=== PATIENT | female | born 1990 | race American Indian/Alaskan Native ===

== ENCOUNTER 2016-10-30 07:17 | Observation (INO) | payer MEDICAID ==
[2016-10-30] MEDS ORDERED: Misoprostol 25 MCG (1/4 of 100 MCG) Tab VAG ONE (07:30)
[2016-10-30] MEDS ORDERED: Sodium Chloride 0.9% 10 ML Syringe FLUSH PRN (08:39)
--- NOTE | 2016-10-30 08:39 | PCM.LDHP ---
[id number] Status Order with Admit Dx/Problem 10/30/16 07:29 Admission Status [Patient Status] [ADT] Routine Admission Diagnosis/Problem Admission Diagnosis/Problem -related examination Source of Information: Patient History Limitations: Reports: No Limitations - History of Present Illness Introduction:: No contractions. She is being admitted for induction at early term due to non compliance,gestational diabetes,poorly monitored. - Related Data Allergies/Adverse Reactions: Allergies Allergy/AdvReac Type Severity Reaction Status Date / Time No Known Allergies Allergy Verified 10/30/16 10:06 Home Medications: Home Meds Insulin Aspart [Novolog] 5 unit SQ DAILY 10/30/16 [History] PNV95/Ferrous Fumarate/FA [ Tablet] 1 each PO DAILY 10/30/16 [History] Past Medical History Endocrine/Metabolic History: Reports: Diabetes, Gestational, Obesity/BMI 30+ - Infectious Disease History Infectious Disease History: Reports: Other (See Below) (Trich) - Past Surgical History Female Surgical History: Reports: Other (See Below) (Ovarian surgery) Social & Family History - Family History Family Medical History: Noncontributory - Tobacco Use Smoking Status *Q: Never Smoker H&P Review of Systems - Review of Systems: Review Of Systems: ROS reveals no pertinent complaints other than HPI. L&D Exam - Exam Exam: See Below - Vital Signs Vital Signs: Last Vital Signs Temp Pulse 105 H 10/30/16 07:30 Resp 17 10/30/16 07:30 BP 108/59 L 10/30/16 07:30 Pulse Ox 99 10/30/16 07:30 - Gee Score Gee Score Cervix Position: Anterior Gee Score Consistency: Medium Gee Score Effacement: 31-50% Gee Score Dilation: 1-2 cm - Exam General: Alert, Oriented HEENT: PERRLA, Conjunctiva Clear, EACs Clear, EOMI, Hearing Intact, Mucosa Moist & [place], Nares Patent, Normal Nasal Septum, Posterior Pharynx Clear, TMs Clear Neck: Supple, Trachea Midline Lungs: Clear to Auscultation, Normal Respiratory Effort Cardiovascular: Regular Rate, Regular Rhythm GI/Abdominal Exam: Normal Bowel Sounds, Soft, Non-Tender, No Organomegaly, No Distention, No Abnormal Bruit, No Mass, Pelvis Stable Rectal Exam: Normal Exam, Normal Rectal Tone Genitourinary: Normal external exam, Normal bimanual exam, Normal speculum exam Back Exam: Normal Inspection, Full Range of Motion Extremities: Normal Inspection, Normal Range of Motion, Non-Tender, No Pedal Edema, Normal Capillary Refill Skin: Warm, Dry, Intact Neurological: Cranial Nerves Intact, Reflexes Equal Bilateral Psychiatric: Alert, Normal Affect, Normal Mood - Patient Data Result Diagrams: 10/30/16 09:05 10/30/16 09:05 - Problem List (1) Gestational diabetes SNOMED Code(s): 61885572 ICD Code: O24.419 - GESTATIONAL DIABETES MELLITUS IN , UNSP CONTROL Status: Acute Current Visit: Yes Qualifiers: Gestational diabetes mellitus control: insulin-controlled Trimester: third trimester Qualified Code(s): O24.414 - Gestational diabetes mellitus in , insulin controlled (2) Elective induction of labor planned SNOMED Code(s): 114571420 ICD Code: [id number] - Status: Acute Current Visit: Yes (3) Obesities, morbid SNOMED Code(s): 265545214, 09945965057226 ICD Code: E66.01 - MORBID (SEVERE) OBESITY DUE TO EXCESS CALORIES Status: Acute Current Visit: Yes Problem List Initiated/Reviewed/Updated: Yes Orders Last 24hrs: Active Orders 24 hr Category Date Time Status Admission Status [Patient Status] [ADT] Routine ADT 10/30/16 07:29 Active Assessment/Plan Comment:: Try Cytotec,and then Pitocin. Normal Saline Insulin
[2016-10-30] MEDS: Insulin Aspart 100 Units/ML 3 ML Pen SUBCUT SCH ×8 (09:50→22:15)
[2016-10-30] MEDS: Oxytocin/Normal Saline 10 UNIT/1,000 ML BAG IV SCH (11:32)
[2016-10-30] MEDS: Lactated Ringers 1,000 ML IV SCH ×2 (14:52→19:02)
[2016-10-31 00:05] VITALS: BP 122/57
[2016-10-31] MEDS: Insulin Aspart 100 Units/ML 3 ML Pen SUBCUT SCH ×5 (02:02→08:25)
[2016-10-31] MEDS: Lactated Ringers 1,000 ML IV SCH (03:11)
[2016-10-31] MEDS: Oxytocin/Normal Saline 10 UNIT/1,000 ML BAG IV SCH (04:32)
--- NOTE | 2016-10-31 07:25 | PN ---
DATE SEEN: 10/31/2016 CHIEF COMPLAINT: Induction of labor. HISTORY OF PRESENT ILLNESS: A 25-year-old female with gestational diabetes, obesity, who was brought in yesterday for induction of labor; noncompliance with insulin, diet, and appointments. Overnight, we tried Pitocin, but there has been no change in the cervix. She expresses interest to go back home and try next week. REVIEW OF SYSTEMS: No fever or chills. No breakage of fluid. MEDICATIONS: Reviewed. ALLERGIES: Reviewed. PHYSICAL EXAMINATION: GENERAL: Pleasant. VIAL SIGNS: Blood pressure is normal, pulse is 79, temperature 98.1. ABDOMEN: Soft. Fundal height is about 37 cm. CERVIX: Sterile cervix exam revealed a closed fingertip 50% effacement with a Gee score of less than 3. IMPRESSION: My final impression is: 1. A failed induction. 2. Gestational diabetes. 3. Early term . 4. Obesity. PLAN: After review of options, the patient elected to try this next week. I will send her home to continue the NPH insulin 15 units in the morning and 5 units of NovoLog with every meal to keep blood sugars 4 times a day. See me on Saturday in the clinic and induction will be set for November 08 next week. To come back to the emergency room with any worsening symptoms. An ultrasound done yesterday showed a presentation of cephalic with a missed weight of 7 pounds 9 ounces. We will plan to have on Saturday for an NST in the clinic or here and then induction for . /[id number] ABELARDO/BAYLEE
--- NOTE | 2016-11-06 11:01 | US ---
INDICATION: Labor induction. Gestational age, weight, position. OB ULTRASOUND THIRD TRIMESTER: Multiple ultrasonic images were obtained 2016 and revealed a single longitudinally-lying, cephalic-presenting fetus, with the spine anteriorly located. A normal amount of amniotic fluid is noted, but is relatively minimal. Regular heart rate of 140 BPM was noted. Placenta is posterior fundal without evidence of previa. Gestational age measurements were fairly closely grouped: BPD 37 weeks 2 days. HC 38 weeks 1 day. AC 39 weeks. FL 37 weeks 1 day, and averaged 38 weeks, compatible with an ROSAURA by ultrasound of 11/13/2016. This is compatible with the LMP given clinically on 09/11/2016 examination. Estimated weight was 3430 grams (7 pounds 9 ounces). IMPRESSION: Findings are compatible with a longitudinally-lying, cephalic- presenting fetus weighing approximately 3430 grams, compatible with an ROSAURA by ultrasound of 11/13/2016. Findings should be correlated clinically. MTDD
== END 2016-10-31 09:45 | disposition home or self-care (01) ==
LOC: EDSTATUS 07:17 → FB.OB 07:19
PROVIDERS: ADMIT Family Medicine; ATTEND Family Medicine
DX: O47.9 False labor, unspecified (principal); O24.414 Gestational diabetes mellitus in pregnancy, insulin controlled; E66.01 Morbid (severe) obesity due to excess calories; Z79.899 Other long term (current) drug therapy; Z68.30 Body mass index [BMI] 30.0-30.9, adult
CPT/HCPCS: 36415; 76805; 80053; 82962; 85025; 96365; 96366; A9270; G0378; J2590; J7050; J7120; 99211

== ENCOUNTER 2016-11-09 07:38 | Inpatient (IN) | payer MEDICAID ==
[2016-11-09] MEDS ORDERED: Sodium Chloride 0.9% 10 ML Syringe FLUSH PRN (07:52)
[2016-11-09] MEDS: Oxytocin/Normal Saline 10 UNIT/1,000 ML BAG IV SCH ×2 (08:51→21:51)
[2016-11-09] MEDS: Lactated Ringers 1,000 ML IV SCH ×2 (08:57→16:44)
--- NOTE | 2016-11-09 17:43 | PCM.LDHP ---
L&D History of Present Illness - General Date of Service: 11/09/16 Admit Problem/Dx: Patient Status Order with Admit Dx/Problem 11/09/16 07:47 Patient Status [ADT] Routine Admission Diagnosis/Problem Admission Diagnosis/Problem Source of Information: Patient History Limitations: Reports: No Limitations - History of Present Illness Introduction:: 25 yo GI P0 with Gestational Diabetes,presents for induction of labor.No conplaints. 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: , Other (See Below) Other OB/BYN History: current gestational diabetic uses insulin Endocrine/Metabolic History: Reports: Diabetes, Gestational, Obesity/BMI 30+ - Infectious Disease History Infectious Disease History: Reports: Other (See Below) (Trich) - Past Surgical History HEENT Surgical History: Reports: None Female Surgical History: Reports: Other (See Below) Social & Family History - Family History Family Medical History: Noncontributory - Tobacco Use Smoking Status *Q: Never Smoker Second Hand Smoke Exposure: No - Caffeine Use Caffeine Use: Reports: Soda - Recreational Drug Use Recreational Drug Use: No H&P Review of Systems - Review of Systems: Review Of Systems: ROS reveals no pertinent complaints other than HPI. L&D Exam - Exam Exam: See Below - Vital Signs Vital Signs: Last Vital Signs Temp 98 F 11/09/16 13:00 Pulse 84 11/09/16 13:00 Resp 22 H 11/09/16 13:00 BP 107/49 L 11/09/16 13:00 Pulse Ox Weight: 117.435 kg - OB Specific Contraction Duration (sec): 40-60 Contraction Frequency (min): 2-5 Contraction Intensity: Mild to Moderate - Gee Score Gee Score Cervix Position: Midposition Gee Score Consistency: Soft Gee Score Dilation: Closed Gee Score 's Station: -2 - Exam General: Alert, Oriented HEENT: PERRLA, Conjunctiva Clear, EACs Clear, EOMI, Hearing Intact, Mucosa Moist & [place], Nares Patent, Normal Nasal Septum, Posterior Pharynx Clear, TMs Clear Neck: Supple, Trachea Midline Lungs: Clear to Auscultation, Normal Respiratory Effort Cardiovascular: Regular Rate, Regular Rhythm GI/Abdominal Exam: Normal Bowel Sounds, Soft, Non-Tender, No Organomegaly, No Distention, No Abnormal Bruit, No Mass, Pelvis Stable Rectal Exam: Normal Exam, Normal Rectal Tone Genitourinary: Normal external exam, Normal bimanual exam, Normal speculum exam Back Exam: Normal Inspection, Full Range of Motion Extremities: Normal Inspection, Normal Range of Motion, Non-Tender, No Pedal Edema, Normal Capillary Refill Skin: Warm, Dry, Intact Neurological: Cranial Nerves Intact, Reflexes Equal Bilateral Psychiatric: Alert, Normal Affect, Normal Mood - Patient Data Lab Results Last 24 hrs: Laboratory Results - last 24 hr 11/09/16 11/09/16 11/09/16 Range/Units 08:27 10:56 13:10 POC Glucose 127 H 89 77 L (80-116) mg/dL 11/09/16 Range/Units 16:03 POC Glucose 80 (80-116) mg/dL - Problem List (1) Elective induction of labor planned SNOMED Code(s): 462386544 ICD Code: [id number] - Status: Acute Current Visit: No (2) Gestational diabetes SNOMED Code(s): 20785614 ICD Code: O24.419 - GESTATIONAL DIABETES MELLITUS IN , UNSP CONTROL Status: Acute Current Visit: No Qualifiers: Gestational diabetes mellitus control: insulin-controlled Trimester: third trimester Qualified Code(s): O24.414 - Gestational diabetes mellitus in , insulin controlled (3) Obesities, morbid SNOMED Code(s): 340052353, [id number] ICD Code: E66.01 - MORBID (SEVERE) OBESITY DUE TO EXCESS CALORIES Status: Acute Current Visit: No Problem List Initiated/Reviewed/Updated: Yes Orders Last 24hrs: Active Orders 24 hr Category Date Time Status Patient Status [ADT] Routine ADT 11/09/16 07:47 Active Communication Order [RC] ASDIRECTED Care 11/09/16 07:52 Active Communication Order [RC] ASDIRECTED Care 11/09/16 07:52 Active Communication Order [RC] ASDIRECTED Care 11/09/16 07:52 Active Communication Order [RC] ASDIRECTED Care 11/09/16 07:52 Active Notify Provider [RC] PRN Care 11/09/16 07:52 Active Notify Provider [RC] STAT Care 11/09/16 07:52 Active Vaginal Exam [RC] PRN Care 11/09/16 07:52 Active Vital Signs [RC] PER UNIT ROUTINE Care 11/09/16 07:52 Active Lactated Ringers [Ringers, Lactated] 1,000 ml Med 11/09/16 08:00 Active IV ASDIRECTED Oxytocin/Normal Saline [Pitocin in NS 10 UNITS/1,000 ML Med 11/09/16 08:00 Active ] 10 unit in 1,000 ml IV TITRATE Sodium Chloride 0.9% [Saline Flush] Med 11/09/16 07:52 Active 10 ml FLUSH ASDIRECTED PRN Peripheral IV Insertion Adult [OM.PC] Urgent Oth 11/09/16 07:52 Ordered Resuscitation Status Routine Resus Stat 11/09/16 07:47 Ordered Medication Orders Lactated Ringer's (Ringers, Lactated) 1,000 mls @ 125 mls/hr IV ASDIRECTED TAQUERIA Last Admin: 11/09/16 16:44 Dose: 125 mls/hr Infusion: 11/09/16 16:44 Dose: 125 mls/hr Admin: 11/09/16 08:57 Dose: 125 mls/hr Oxytocin/Sodium Chloride (Pitocin In Ns 10 Units/1,000 Ml) 10 unit in 1,000 mls @ 12 mls/hr IV TITRATE TAQUERIA; 2 MUNITS/MIN PRN Reason: Protocol Last Titration: 11/09/16 15:40 Dose: 16 munits/min, 96 mls/hr Titration: 11/09/16 15:02 Dose: 14 munits/min, 84 mls/hr Titration: 11/09/16 14:05 Dose: 12 munits/min, 72 mls/hr Titration: 11/09/16 11:41 Dose: 10 munits/min, 60 mls/hr Titration: 11/09/16 10:50 Dose: 8 munits/min, 48 mls/hr Titration: 11/09/16 10:17 Dose: 6 munits/min, 36 mls/hr Titration: 11/09/16 08:51 Dose: 2 munits/min, 12 mls/hr Admin: 11/09/16 08:51 Dose: 2 munits/min, 12 mls/hr Sodium Chloride (Saline Flush) 10 ml FLUSH ASDIRECTED PRN PRN Reason: Keep Vein Open Last Admin: 11/09/16 08:57 Dose: 10 ml Assessment/Plan Comment:: Induce with Pit.Monitor Sugars.
[2016-11-10] MEDS: Lactated Ringers 1,000 ML IV SCH ×3 (00:22→19:34)
[2016-11-10] MEDS: Oxytocin/Normal Saline 10 UNIT/1,000 ML BAG IV SCH (06:32)
[2016-11-10] MEDS ORDERED: Citric Acid/Sodium Citrate Solution 30 ML Cup PO ONE ×2 (07:00→19:12)
[2016-11-10] MEDS ORDERED: Scopolamine 1.5 MG Transdermal Patch TRDERM ONE (07:00)
[2016-11-10] MEDS: Nalbuphine 10 MG/1 ML Vial IVPUSH PRN ×2 (12:04→19:12)
[2016-11-10] MEDS ORDERED: Scopolamine 1.5 MG Transdermal Patch TOP ONE (19:13)
--- NOTE | 2016-11-10 19:52 | PCM.PNLD ---
Labor Progress Note - VS & Meds Vital Signs: Last Vital Signs Temp 97.4 F 11/10/16 12:08 Pulse 68 11/10/16 08:07 Resp 20 11/10/16 12:08 BP 131/82 11/10/16 12:08 Pulse Ox 96 11/10/16 12:08 Active Medications: Current Medications Lactated Ringer's (Ringers, Lactated) 1,000 mls @ 125 mls/hr IV ASDIRECTED TAQUERIA Last Admin: 11/10/16 19:34 Dose: 100 mls/hr Oxytocin/Sodium Chloride (Pitocin In Ns 10 Units/1,000 Ml) 10 unit in 1,000 mls @ 12 mls/hr IV TITRATE TAQUERIA; 2 MUNITS/MIN PRN Reason: Protocol Last Titration: 11/10/16 17:17 Dose: 10 munits/min, 60 mls/hr Nalbuphine HCl (Nubain) 10 mg IVPUSH Q3H PRN PRN Reason: contraction pain Last Admin: 11/10/16 19:12 Dose: 10 mg Sodium Chloride (Saline Flush) 10 ml FLUSH ASDIRECTED PRN PRN Reason: Keep Vein Open Last Admin: 11/09/16 08:57 Dose: 10 ml Discontinued Medications Citric Acid/Sodium Citrate (Bicitra Solution) 30 ml PO ONETIME ONE Stop: 11/10/16 07:01 Last Admin: 11/10/16 19:27 Dose: Not Given Citric Acid/Sodium Citrate (Bicitra Solution) 30 ml PO ONETIME ONE Stop: 11/10/16 19:13 Scopolamine (Transderm-Scop) 1.5 mg TRDERM ONETIME ONE Stop: 11/10/16 07:01 Last Admin: 11/10/16 19:27 Dose: Not Given Scopolamine (Transderm-Scop) 1.5 mg TOP ONETIME ONE Stop: 11/10/16 19:14 - Uterine Contractions Uterine Monitoring Mode: External [place] Contraction Frequency (min): 2-6 Contraction Duration (sec): 20-30 Contraction Intensity: Strong Uterine Resting Tone: Soft - Monitoring Accelerations: Present, 15x15 Decelerations: None Strip Review: Category I - Vaginal Exam Dilation (cm): 4-5 Effacement (Percent): 80 Station: -1 Cervical Position: Midposition Sterile Vaginal Exam Performed By: Glenny Max Vaginal Exam Comment: Dr. David Marc states cervix is very posterior and hard to reach to determine exact dilatation. - Labor Progress (Free Text) Labor Progress: 0800 :This morning,I did AROM. Clear fluid. Continue with Pit. Nubain PRN. Fluids. 1900: I checked her again. St[place]out 4-5,-1 Station. No major progress despite maximizing Pitocin. Impression:Arrested labor. Failure to progress. Marybel: Proceed to C Section. I reviewed benefits,risk and reasonable alternatives with the patient. I covered bleeding,injury,anesthetic risks. She and Ray accepted to proceed.
--- NOTE | 2016-11-10 20:45 | PCM.SN ---
- Free Text/Narrative Note: 25 yo f who is 39 w 5 d gestation. induced yesterday and has had failure to progress. still at 4 cm. sig for gestational diabetes. she is A+, Rh- For c section as determined by Dr Marc. procedure and risks explained to the pt to include bleeding infection, injury to bowel, bladder, ureter and baby. expressed understanding and asks us to proceed.
[2016-11-10] MEDS ORDERED: Oxytocin 10 Units/1 ML SDV IV ONE (21:30)
[2016-11-10] MEDS ORDERED: Lactated Ringers 1,000 ML IV ONE (21:30)
[2016-11-10] MEDS ORDERED: Ondansetron 4 MG/2 ML SDV IVPUSH ONE (21:30)
[2016-11-10] MEDS ORDERED: ceFAZolin 1 GM Vial IV ONE (21:30)
[2016-11-10] MEDS ORDERED: Morphine PF 10 MG/10 ML SDV ONE (21:30)
[2016-11-10] MEDS ORDERED: Ketorolac 30 MG/ML SDV IVPUSH ONE (21:30)
[2016-11-10] MEDS ORDERED: ePHEDrine 50 MG/ML SDV IVPUSH PRN (22:07)
[2016-11-10] MEDS ORDERED: diphenhydrAMINE 50 MG/ML SDV IVPUSH PRN (22:07)
[2016-11-10] MEDS ORDERED: Naloxone 0.4 MG/ML SDV IVPUSH PRN (22:07)
--- NOTE | 2016-11-10 22:14 | PCM.OPNOTE ---
- General Post-Op/Procedure Note Date of Surgery/Procedure: 11/10/16 Operative Procedure(s): c section Findings: term infant apgars 8/9 ISAURA presentation Pre Op Diagnosis: failure to progress Post-Op Diagnosis: Same Anesthesia Technique: Spinal Primary Surgeon: Johnathon Burrell Secondary Surgeon: Stewart Marc Anesthesia Provider: Estella Pinedo Pathology: placenta EBL in mLs: 600 Complications: None Condition: Good Free Text/Narrative:: Intake & Output 11/10/16 11/10/16 11/10/16 06:59 14:59 22:59 Intake Total 0355 1939 Balance 1715 193 see dictation
[2016-11-10] MEDS: Ketorolac 30 MG/ML SDV IVPUSH SCH (23:30)
--- NOTE | 2016-11-11 02:06 | OR ---
DATE OF OPERATION: 11/10/2016 SURGEON: Johnathon Burrell MD PROCEDURE PERFORMED: section. PREOPERATIVE DIAGNOSIS: Failure to progress. POSTOPERATIVE DIAGNOSIS: Failure to progress. ELECTRIC FURNACE OPERATOR: Stewart Marc MD. VIDEO CONTROL ENGINEER: REEMA Pinedo. INDICATIONS FOR PROCEDURE: This is a 25-year-old, white female, who was brought in for induction yesterday. Essentially, she has had a failure to progress in the past 36 hours and it was the opinion of Dr. Marc her attending physician that a section was indicated. She was offered and accepted same. INTRAOPERATIVE FINDINGS: As follows: A term female , ISAURA on presentation with score of 8 and 9, was delivered without difficulty. DESCRIPTION OF OPERATION: After an excellent spinal anesthetic was administered, the patient was prepped and draped in usual sterile manner. After a pinch test with Allis clamps along the planned incision site, revealed excellent anesthesia. An incision was then made with a #10 scalpel blade, approximately two fingerbreadths above the symphysis pubis. It was extended laterally from the midline approximately 5 cm. The underlying subcu fat was divided using a combination of electrocautery and sharp dissection. Bilateral superficial inferior epigastric veins were clamped, divided, and tied with 2-0 Vicryl ties. The anterior abdominal wall fascia was exposed. This was incised and a finger was introduced between the vagina and the underlying muscle layers allowing us to divide the fascia bilaterally with the cautery. The superior fascia was grasped, elevated, and using electrocautery dissection a flap was mobilized superiorly to the approximate level of the umbilicus and inferiorly down below the symphysis pubis. The peritoneum was entered and the uterus was exposed. There was some omentum that we had to retract out of the way as well as the sigmoid colon. A bladder flap was raised by grasping the peritoneum overlying the uterus and developing a plane. Incision was then made into the uterus and the child's head was exposed and index finger was inserted and the incision was widened both medially and laterally. The child's head was delivered followed by the anterior and posterior shoulder. After delivering the head, the airways were suctioned with the bulb suction. After delivering the infant, child was placed head down, more bulb suction was applied, and then the umbilical cord was clamped, divided, and the child was passed off the field. Placenta was then delivered after delivering the uterus of the abdominal wall. After rubbing the inside of the uterus with an ABD and at the start of Pitocin, the uterus was noted to contract nicely. The uterine incision was closed in two layers, one with a locking running 0 Vicryl followed by a running Lembert stitch. After assuring excellent hemostasis, the pouch of Anthony and the two lateral gutters were irrigated and after assuring excellent hemostasis, the uterus was returned to normal anatomic position. The fascial defect was then closed with a running 0 Vicryl and subcu fat was approximated with a running subcu 3-0 Vicryl followed by a running 3-0 subcu Vicryl to close the skin. Steri-Strips and dressing was applied. EBL was 600 mL. The patient was taken to recovery room in good condition having tolerated the procedure well. /[id number] /SERAL
[2016-11-11] MEDS: Ketorolac 30 MG/ML SDV IVPUSH SCH ×3 (06:05→22:40)
[2016-11-11] MEDS: Lactated Ringers 1,000 ML IV SCH ×3 (08:34→23:44)
[2016-11-11] MEDS ORDERED: Lactated Ringers 1,000 ML IV ONE (09:07)
--- NOTE | 2016-11-11 09:12 | PCM.PNPP ---
- General Info Date of Service: 11/11/16 Functional Status: Reports: Pain Controlled, Ambulating, Urinating (decreased u/ o) - Review of Systems General: Reports: No Symptoms Pulmonary: Reports: No Symptoms Cardiovascular: Reports: No Symptoms Gastrointestinal: Reports: No Symptoms - Patient Data Vital Signs - Most Recent: Last Vital Signs Temp 37.0 C 11/11/16 08:00 Pulse 97 11/11/16 08:00 Resp 16 11/11/16 08:00 BP 113/55 L 11/11/16 08:00 Pulse Ox 97 11/11/16 08:00 Weight - Most Recent: 117.435 kg I&O - Last 24 Hours: Intake & Output 11/10/16 11/11/16 11/11/16 22:59 06:59 14:59 Intake Total 729 1000 Output Total 200 Balance 529 1000 Lab Results - Last 24 Hours: Laboratory Results - last 24 hr 11/10/16 11/10/16 11/10/16 Range/Units 16:22 19:55 19:55 WBC 10.7 (4.5-12.0) X10-3/uL RBC 5.08 (3.23-5.20) x10(6)uL Hgb 12.4 (11.5-15.5) g/dL Hct 37.2 (30.0-51.3) % MCV 73.3 L (80-96) fL MCH 24.3 L (27.7-33.6) pg MCHC 33.2 (32.2-35.4) g/dL RDW 15.8 H (11.5-15.5) % Plt Count 256 (125-369) X10(3)uL MPV 8.9 (7.4-10.4) fL Neut % (Auto) 78.8 (46-82) % Lymph % (Auto) 16.0 (13-37) % Mcdonough % (Auto) 4.2 (4-12) % Eos % (Auto) 1 (1.0-5.0) % Baso % (Auto) 0 (0-2) % Neut # (Auto) 8.5 H (1.6-8.3) # Lymph # (Auto) 1.7 (0.6-5.0) # Mcdonough # (Auto) 0.4 (0.0-1.3) # Eos # (Auto) 0.1 (0.0-0.8) # Baso # (Auto) 0.0 (0.0-0.2) # POC Glucose 62 L (80-116) mg/dL Blood Type A POSITIVE Gel Antibody Screen Negative 11/10/16 11/10/16 11/11/16 Range/Units 20:13 22:25 05:55 WBC 11.2 (4.5-12.0) X10-3/uL RBC 4.26 (3.23-5.20) x10(6)uL Hgb 10.3 L (11.5-15.5) g/dL Hct 31.3 (30.0-51.3) % MCV 73.4 L (80-96) fL MCH 24.2 L (27.7-33.6) pg MCHC 32.9 (32.2-35.4) g/dL RDW 15.7 H (11.5-15.5) % Plt Count 222 (125-369) X10(3)uL MPV 9.3 (7.4-10.4) fL Neut % (Auto) 78.1 (46-82) % Lymph % (Auto) 16.0 (13-37) % Mcdonough % (Auto) 5.0 (4-12) % Eos % (Auto) 1 (1.0-5.0) % Baso % (Auto) 0 (0-2) % Neut # (Auto) 8.7 H (1.6-8.3) # Lymph # (Auto) 1.8 (0.6-5.0) # Mcdonough # (Auto) 0.6 (0.0-1.3) # Eos # (Auto) 0.1 (0.0-0.8) # Baso # (Auto) 0.0 (0.0-0.2) # POC Glucose 72 L 64 L (80-116) mg/dL Blood Type Gel Antibody Screen Med Orders - Current: Current Medications Diphenhydramine HCl (Benadryl) 25 mg IVPUSH Q6H PRN PRN Reason: Itching or Nausea Ephedrine Sulfate (Ephedrine Sulfate) 5 mg IVPUSH ASDIRECTED PRN PRN Reason: Other Lactated Ringer's (Ringers, Lactated) 1,000 mls @ 150 mls/hr IV ASDIRECTED TAQUERIA Last Admin: 11/11/16 08:34 Dose: 100 mls/hr Oxytocin/Sodium Chloride (Pitocin In Ns 10 Units/1,000 Ml) 10 unit in 1,000 mls @ 12 mls/hr IV TITRATE TAQUERIA; 2 MUNITS/MIN PRN Reason: Protocol Last Titration: 11/10/16 17:17 Dose: 10 munits/min, 60 mls/hr Lactated Ringer's (Ringers, Lactated) 1,000 mls @ 999 mls/hr IV BOLUS ONE Stop: 11/11/16 10:07 Ketorolac Tromethamine (Toradol) 30 mg IVPUSH Q8H TA[place]ERIA Stop: 11/14/16 22:31 Last Admin: 11/11/16 06:05 Dose: 30 mg Nalbuphine HCl (Nubain) 10 mg IVPUSH Q3H PRN PRN Reason: contraction pain Last Admin: 11/10/16 19:12 Dose: 10 mg Sodium Chloride (Saline Flush) 10 ml FLUSH ASDIRECTED PRN PRN Reason: Keep Vein Open Last Admin: 11/09/16 08:57 Dose: 10 ml Discontinued Medications Citric Acid/Sodium Citrate (Bicitra Solution) 30 ml PO ONETIME ONE Stop: 11/10/16 07:01 Last Admin: 11/10/16 19:27 Dose: Not Given Citric Acid/Sodium Citrate (Bicitra Solution) 30 ml PO ONETIME ONE Stop: 11/10/16 19:13 Last Admin: 11/10/16 20:14 Dose: 30 ml Naloxone HCl (Narcan) 0.1 mg IVPUSH ONETIME PRN PRN Reason: Respiratory Depression Stop: 11/10/16 22:08 Scopolamine (Transderm-Scop) 1.5 mg TRDERM ONETIME ONE Stop: 11/10/16 07:01 Last Admin: 11/10/16 19:27 Dose: Not Given Scopolamine (Transderm-Scop) 1.5 mg TOP ONETIME ONE Stop: 11/10/16 19:14 Last Admin: 11/10/16 20:13 Dose: 1.5 mg - Infant Interaction Support Person: Significant Other - Recovery Exam Fundal Tone: Firm Fundal Level: At Umbilicus Fundal Placement: Midline Lochia Amount: Moderate Lochia Color: Rubra/Red Perineum Description: Intact, Minimal Bruising/Swelling Episiotomy/Laceration: None Bladder Status: Indwelling Catheter in Place Urinary Elimination: Indwelling Catheter - Exam General: Alert, Oriented, Cooperative, No Acute Distress Lungs: Clear to Auscultation, Normal Respiratory Effort Cardiovascular: Regular Rate, Regular Rhythm GI/Abdominal Exam: Normal Bowel Sounds, Soft Skin: Warm, Dry, Intact Wound/Incisions: Dressing Dry and Intact - Problem List & Annotations (1) delivery delivered SNOMED Code(s): 976466679 Code(s): O82 - ENCOUNTER FOR DELIVERY WITHOUT INDICATION Status: Acute Current Visit: Yes - Problem List Review Problem List Initiated/Reviewed/Updated: Yes - My Orders Last 24 Hours: My Active Orders 11/10/16 22:07 Ambulate [RC] PER UNIT ROUTINE Notify Provider Vital Signs [RC] ASDIRECTED Urinary Catheter Assessment [RC] QSHIFT Wound Care [RC] 08,16,00 diphenhydrAMINE [Benadryl] 25 mg IVPUSH Q6H PRN ePHEDrine [ePHEDrine Sulfate] 5 mg IVPUSH ASDIRECTED PRN Assess Lochia [WOMSER] Per Unit Routine Breast Pump [WOMSER] Per Unit Routine 11/10/16 22:08 Communication Order [RC] Per Unit Routine Communication Order [RC] Per Unit Routine Communication Order [RC] Per Unit Routine Abdominal Binder [OM.PC] Per Unit Routine Assess Uterine Involution [WOMSER] Per Unit Routine 11/10/16 22:09 RT Incentive Spirometry [RC] Q2HWA 11/10/16 22:11 Intake and Output [RC] 06,14,22 Heat Therapy [OM.PC] Per Unit Routine Ice Therapy [OM.PC] Per Unit Routine 11/10/16 22:30 Ketorolac [Toradol] 30 mg IVPUSH Q8H 11/11/16 09:07 Lactated Ringers [Ringers, Lactated] 1,000 ml IV BOLUS - Assessment Assessment:: U/O low needs fluid bolus - Plan Plan:: fluid bolus conitnue current rx increase IVF rate
[2016-11-12] MEDS: Lactated Ringers 1,000 ML IV SCH (06:32)
[2016-11-12] MEDS: Ketorolac 30 MG/ML SDV IVPUSH SCH (06:33)
--- NOTE | 2016-11-12 09:53 | PCM.PNPP ---
- General Info Date of Service: 11/12/16 Functional Status: Reports: Pain Controlled, Ambulating, Urinating - Review of Systems Pulmonary: Reports: No Symptoms Cardiovascular: Reports: No Symptoms Gastrointestinal: Reports: No Symptoms. Denies: Flatus Genitourinary: Reports: No Symptoms Musculoskeletal: Reports: No Symptoms - Patient Data Vital Signs - Most Recent: Last Vital Signs Temp 37.0 C 11/12/16 07:17 Pulse 70 11/12/16 07:17 Resp 18 11/12/16 07:17 BP 111/61 11/12/16 07:17 Pulse Ox 98 11/12/16 07:17 Weight - Most Recent: 117.435 kg I&O - Last 24 Hours: Intake & Output 11/11/16 11/12/16 11/12/16 22:59 06:59 14:59 Intake Total 1152 1235 Output Total 550 300 500 Balance 602 935 -500 Med Orders - Current: Current Medications Diphenhydramine HCl (Benadryl) 25 mg IVPUSH Q6H PRN PRN Reason: Itching or Nausea Ephedrine Sulfate (Ephedrine Sulfate) 5 mg IVPUSH ASDIRECTED PRN PRN Reason: Other Lactated Ringer's (Ringers, Lactated) 1,000 mls @ 75 mls/hr IV ASDIRECTED TAQUERIA Last Admin: 11/12/16 06:32 Dose: 150 mls/hr Oxytocin/Sodium Chloride (Pitocin In Ns 10 Units/1,000 Ml) 10 unit in 1,000 mls @ 12 mls/hr IV TITRATE TAQUERIA; 2 MUNITS/MIN PRN Reason: Protocol Last Titration: 11/10/16 17:17 Dose: 10 munits/min, 60 mls/hr Nalbuphine HCl (Nubain) 10 mg IVPUSH Q3H PRN PRN Reason: contraction pain Last Admin: 11/10/16 19:12 Dose: 10 mg Sodium Chloride (Saline Flush) 10 ml FLUSH ASDIRECTED PRN PRN Reason: Keep Vein Open Last Admin: 11/09/16 08:57 Dose: 10 ml Discontinued Medications Citric Acid/Sodium Citrate (Bicitra Solution) 30 ml PO ONETIME ONE Stop: 11/10/16 07:01 Last Admin: 11/10/16 19:27 Dose: Not Given Citric Acid/Sodium Citrate (Bicitra Solution) 30 ml PO ONETIME ONE Stop: 11/10/16 19:13 Last Admin: 11/10/16 20:14 Dose: 30 ml Lactated Ringer's (Ringers, Lactated) 1,000 mls @ 999 mls/hr IV BOLUS ONE Stop: 11/11/16 10:07 Last Admin: 11/11/16 09:16 Dose: 999 mls/hr Ketorolac Tromethamine (Toradol) 30 mg IVPUSH Q8H TAQUERIA Stop: 11/14/16 22:31 Last Admin: 11/12/16 06:33 Dose: 30 mg Naloxone HCl (Narcan) 0.1 mg IVPUSH ONETIME PRN PRN Reason: Respiratory Depression Stop: 11/10/16 22:08 Scopolamine (Transderm-Scop) 1.5 mg TRDERM ONETIME ONE Stop: 11/10/16 07:01 Last Admin: 11/10/16 19:27 Dose: Not Given Scopolamine (Transderm-Scop) 1.5 mg TOP ONETIME ONE Stop: 11/10/16 19:14 Last Admin: 11/10/16 20:13 Dose: 1.5 mg - Interaction Disposition, : in Room with Family Support Person: Significant Other - Recovery Exam Fundal Tone: Firm Fundal Level: 1 Fingerbreadths Below Umbilicus Fundal Placement: Midline Lochia Amount: Small, Moderate Lochia Color: Rubra/Red Perineum Description: Intact, Minimal Bruising/Swelling Episiotomy/Laceration: None Bladder Status: Voiding Urinary Elimination: Voided - Exam General: Alert, Oriented, Cooperative, No Acute Distress Lungs: Clear to Auscultation, Normal Respiratory Effort Cardiovascular: Regular Rate, Regular Rhythm GI/Abdominal Exam: Normal Bowel Sounds, Soft Extremities: Normal Inspection Skin: Warm, Dry, Intact Wound/Incisions: Dressing Dry and Intact - Problem List & Annotations (1) delivery delivered SNOMED Code(s): 493206718 Code(s): O82 - ENCOUNTER FOR DELIVERY WITHOUT INDICATION Status: Acute Current Visit: Yes - Problem List Review Problem List Initiated/Reviewed/Updated: Yes - My Orders Last 24 Hours: My Active Orders 11/12/16 09:48 May Shower [RC] ASDIRECTED - Assessment Assessment:: mobilizing fluids. still no flatus. - Plan Plan:: decrease IVF to 75 hr. ambulate.
[2016-11-12] MEDS: Ibuprofen 600 MG Tab PO PRN (16:19)
[2016-11-13] MEDS: Ibuprofen 600 MG Tab PO PRN ×4 (01:48→20:32)
--- NOTE | 2016-11-13 10:59 | PCM.PNPP ---
- General Info Date of Service: 11/13/16 Functional Status: Reports: Pain Controlled, Tolerating Diet, Ambulating, Urinating. Denies: New Symptoms - Review of Systems General: Reports: No Symptoms Pulmonary: Reports: No Symptoms Cardiovascular: Reports: No Symptoms Gastrointestinal: Reports: Flatus - Patient Data Vital Signs - Most Recent: Last Vital Signs Temp 36.5 C 11/13/16 08:00 Pulse 71 11/13/16 08:00 Resp 16 11/13/16 08:00 BP 111/72 11/13/16 08:00 Pulse Ox 98 11/13/16 08:00 Weight - Most Recent: 117.435 kg I&O - Last 24 Hours: Intake & Output 11/12/16 11/13/16 11/13/16 22:59 06:59 14:59 Intake Total 798 849 Balance 798 849 Med Orders - Current: Current Medications Bisacodyl (Dulcolax) 10 mg RECTAL DAILY TAQUERIA Diphenhydramine HCl (Benadryl) 25 mg IVPUSH Q6H PRN PRN Reason: Itching or Nausea Ephedrine Sulfate (Ephedrine Sulfate) 5 mg IVPUSH ASDIRECTED PRN PRN Reason: Other Lactated Ringer's (Ringers, Lactated) 1,000 mls @ 75 mls/hr IV ASDIRECTED TAQUERIA Last Admin: 11/12/16 06:32 Dose: 150 mls/hr Oxytocin/Sodium Chloride (Pitocin In Ns 10 Units/1,000 Ml) 10 unit in 1,000 mls @ 12 mls/hr IV TITRATE TAQUERIA; 2 MUNITS/MIN PRN Reason: Protocol Last Titration: 11/10/16 17:17 Dose: 10 munits/min, 60 mls/hr Ibuprofen (Motrin) 600 mg PO Q6H PRN PRN Reason: Pain Last Admin: 11/13/16 08:02 Dose: 600 mg Nalbuphine HCl (Nubain) 10 mg IVPUSH Q3H PRN PRN Reason: contraction pain Last Admin: 11/10/16 19:12 Dose: 10 mg Sodium Chloride (Saline Flush) 10 ml FLUSH ASDIRECTED PRN PRN Reason: Keep Vein Open Last Admin: 11/09/16 08:57 Dose: 10 ml Discontinued Medications Citric Acid/Sodium Citrate (Bicitra Solution) 30 ml PO ONETIME ONE Stop: 11/10/16 07:01 Last Admin: 11/10/16 19:27 Dose: Not Given Citric Acid/Sodium Citrate (Bicitra Solution) 30 ml PO ONETIME ONE Stop: 11/10/16 19:13 Last Admin: 11/10/16 20:14 Dose: 30 ml Lactated Ringer's (Ringers, Lactated) 1,000 mls @ 999 mls/hr IV BOLUS ONE Stop: 11/11/16 10:07 Last Admin: 11/11/16 09:16 Dose: 999 mls/hr Ketorolac Tromethamine (Toradol) 30 mg IVPUSH Q8H TAQUERIA Stop: 11/14/16 22:31 Last Admin: 11/12/16 06:33 Dose: 30 mg Naloxone HCl (Narcan) 0.1 mg IVPUSH ONETIME PRN PRN Reason: Respiratory Depression Stop: 11/10/16 22:08 Scopolamine (Transderm-Scop) 1.5 mg TRDERM ONETIME ONE Stop: 11/10/16 07:01 Last Admin: 11/10/16 19:27 Dose: Not Given Scopolamine (Transderm-Scop) 1.5 mg TOP ONETIME ONE Stop: 11/10/16 19:14 Last Admin: 11/10/16 20:13 Dose: 1.5 mg - Infant Interaction Infant Disposition, : [place] in Room with Family Support Person: Significant Other - Recovery Exam Fundal Tone: Firm Fundal Level: 1 Fingerbreadths Below Umbilicus Fundal Placement: Midline Lochia Amount: Small, Moderate Lochia Color: Rubra/Red Perineum Description: Intact, Minimal Bruising/Swelling Episiotomy/Laceration: None Bladder Status: Voiding Urinary Elimination: Voided - Exam General: Alert, Oriented, Cooperative Lungs: Clear to Auscultation, Normal Respiratory Effort Cardiovascular: Regular Rate, Regular Rhythm GI/Abdominal Exam: Normal Bowel Sounds, Soft, Non-Tender Skin: Warm, Dry, Intact Wound/Incisions: Drainage (minimum amount ) - Problem List & Annotations (1) delivery delivered SNOMED Code(s): 618469454 Code(s): O82 - ENCOUNTER FOR DELIVERY WITHOUT INDICATION Status: Acute Current Visit: Yes - Problem List Review Problem List Initiated/Reviewed/Updated: Yes - My Orders Last 24 Hours: My Active Orders 11/12/16 15:16 Ibuprofen [Motrin] 600 mg PO Q6H PRN 11/13/16 10:55 Peripheral IV Discontinue [OM.PC] Routine 11/13/16 11:00 Bisacodyl [Dulcolax] 10 mg RECTAL DAILY 11/13/16 Dinner Full Liquid Diet [DIET] - Assessment Assessment:: POD #2 stable - Plan Plan:: full liquid diet d/c iv ducolax suppository
[2016-11-13] MEDS: Bisacodyl 10 MG Supp RECTAL SCH (12:30)
[2016-11-14] MEDS: Ibuprofen 600 MG Tab PO PRN ×2 (03:46→09:45)
--- NOTE | 2016-11-14 07:53 | PCM.DCSUM1 ---
Discharge Summary - Hospital Course Free Text/Narrative:: Pt admitted for induction and was taken to the OR for a c section for failure to progress. Post operative course was essentially unremarkable. She had return of flatus on POD#2, and was moving her bowels by the end of POD#3. She as has tolerated a regular diet and her bowels are moving. She her wound has remained clean and dry. - Discharge Data Discharge Date: 11/14/16 Discharge Disposition: Home, Self-Care 01 Condition: Good - Discharge Diagnosis/Problem(s) (1) delivery delivered SNOMED Code(s): 244880500 ICD Code: O82 - ENCOUNTER FOR DELIVERY WITHOUT INDICATION Status: Acute Current Visit: Yes - Patient Summary/Data Operative Procedure(s) Performed: c section - Patient Instructions Diet: Usual Diet as Tolerated, No Alcoholic Beverages Activity: No Lifting Over 25 Pounds Driving: Do Not Drive (for 7 days ) Showering/Bathing: May Shower, No Tub Bathing/Swimming Wound/Incision Care: Change Dressing Daily Notify Provider of: Fever, Swelling and Redness, Drainage - Discharge Plan Home Medications: Home Meds Insulin Aspart [Novolog] 5 unit SQ ACBREAKFASTANDBED PRN 10/30/16 [History] PNV95/Ferrous Fumarate/FA [ Tablet] 1 each PO DAILY 10/30/16 [History] Patient Handouts: Shaken Baby Syndrome, and Inducing , Acne, Well Slubber Hand - 1 Month Old, Taking Your Child's Temperature, Rooming-In With Your [place], Colic, [id number], Breast Pumping Tips, Depression and Baby Blues, Baby Safe Sleeping Information, CPR, , Constipation, Infant, Baby Care, Care After Delivery, Breast Pumping Tips, Sroj-bi-[id number], Resuscitation, SIDS Prevention Information, Baby Safe Sleeping Information, [id number], Thrush, , Ully-jk-Rcdo, Diarrhea, , Rear-Facing Infant-Only Child Safety Seat, Vomiting, Child - Discharge Summary/Plan Comment DC Time >30 min.: No - General Info Functional Status: Reports: Pain Controlled, Tolerating Diet, Ambulating, Urinating - Review of Systems Pulmonary: Reports: No Symptoms Cardiovascular: Reports: No Symptoms Gastrointestinal: Reports: No Symptoms - Patient Data Vitals - Most Recent: Last Vital Signs Temp 36.9 C 11/13/16 23:47 Pulse 69 11/13/16 23:47 Resp 16 11/13/16 23:47 BP 110/72 11/13/16 23:47 Pulse Ox 98 11/13/16 23:47 Weight - Most Recent: 117.435 kg I&O - Last 24 hours: Intake & Output 11/13/16 11/14/16 11/14/16 22:59 06:59 14:59 Intake Total 800 Balance 800 Med Orders - Current: Current Medications Bisacodyl (Dulcolax) 10 mg RECTAL DAILY TAQUERIA Last Admin: 11/13/16 12:30 Dose: 10 mg Diphenhydramine HCl (Benadryl) 25 mg IVPUSH Q6H PRN PRN Reason: Itching or Nausea Ephedrine Sulfate (Ephedrine Sulfate) 5 mg IVPUSH ASDIRECTED PRN PRN Reason: Other Lactated Ringer's (Ringers, Lactated) 1,000 mls @ 75 mls/hr IV ASDIRECTED TAQUERIA Last Admin: 11/12/16 06:32 Dose: 150 mls/hr Oxytocin/Sodium Chloride (Pitocin In Ns 10 Units/1,000 Ml) 10 unit in 1,000 mls @ 12 mls/hr IV TITRATE TAQUERIA; 2 MUNITS/MIN PRN Reason: Protocol Last Titration: 11/10/16 17:17 Dose: 10 munits/min, 60 mls/hr Ibuprofen (Motrin) 600 mg PO Q6H PRN PRN Reason: Pain Last Admin: 11/14/16 03:46 Dose: 600 mg Nalbuphine HCl (Nubain) 10 mg IVPUSH Q3H PRN PRN Reason: contraction pain Last Admin: 11/10/16 19:12 Dose: 10 mg Sodium Chloride (Saline Flush) 10 ml FLUSH ASDIRECTED PRN PRN Reason: Keep Vein Open Last Admin: 11/09/16 08:57 Dose: 10 ml Discontinued Medications Cefazolin Sodium (Ancef) 2 gm IV .STK-MED ONE Stop: 11/10/16 21:31 Citric Acid/Sodium Citrate (Bicitra Solution) 30 ml PO ONETIME ONE Stop: 11/10/16 07:01 Last Admin: 11/10/16 19:27 Dose: Not Given Citric Acid/Sodium Citrate (Bicitra Solution) 30 ml PO ONETIME ONE Stop: 11/10/16 19:13 Last Admin: 11/10/16 20:14 Dose: 30 ml Lactated Ringer's (Ringers, Lactated) 1,000 mls @ 999 mls/hr IV BOLUS ONE Stop: 11/11/16 10:07 Last Admin: 11/11/16 09:16 Dose: 999 mls/hr Lactated Ringer's (Ringers, Lactated) 1,000 mls @ as directed IV .STK-MED ONE Stop: 11/10/16 21:31 Ketorolac Tromethamine (Toradol) 30 mg IVPUSH Q8H TAQUERIA Stop: 11/14/16 22:31 Last Admin: 11/12/16 06:33 Dose: 30 mg Ketorolac Tromethamine (Toradol) 30 mg IVPUSH .STK-MED ONE Stop: 11/10/16 21:31 Morphine Sulfate (Duramorph Pf) 0.15 mg .XX .STK-MED ONE Stop: 11/10/16 21:31 Naloxone HCl (Narcan) 0.1 mg IVPUSH ONETIME PRN PRN Reason: Respiratory Depression Stop: 11/10/16 22:08 Ondansetron HCl (Zofran) 4 mg IVPUSH .STK-MED ONE Stop: 11/10/16 21:31 Oxytocin (Pitocin) 20 unit IV .STK-MED ONE Stop: 11/10/16 21:31 Scopolamine (Transderm-Scop) 1.5 mg TRDERM ONETIME ONE Stop: 11/10/16 07:01 Last Admin: 11/10/16 19:27 Dose: Not Given Scopolamine (Transderm-Scop) 1.5 mg TOP ONETIME ONE Stop: 11/10/16 19:14 Last Admin: 11/10/16 20:13 Dose: 1.5 mg - Exam General: Reports: Alert, Oriented, Cooperative, No Acute Distress Lungs: Reports: Clear to Auscultation, Normal Respiratory Effort Cardiovascular: Reports: Regular Rate, Regular Rhythm GI/Abdominal Exam: Normal Bowel Sounds, Soft, Non-Tender Skin: Reports: Warm, Dry, Intact Wound/Incisions: Reports: Healing Well, Dressing Dry and Intact *Q Meaningful Use (DIS) - VTE *Q VTE Criteria *Q: - Stroke *Q Stroke Criteria *Q: - AMI *Q AMI Criteria *Q:
[2016-11-14 08:18] VITALS: BP 115/73
[2016-11-14] MEDS: Bisacodyl 10 MG Supp RECTAL SCH (09:45)
== END 2016-11-14 13:20 | disposition home or self-care (01) | DRG 766 ==
LOC: FB.OBCHECK 07:38 → FB.OB 07:40 → FB.OBCHECK 07:47 → OBSVTOIN 11-10 08:01
PROVIDERS: ADMIT Family Medicine; ATTEND Family Medicine
PROC: 10D00Z1 Extraction of Products of Conception, Low, Open Approach (ICD-10-PCS; principal; 2016-11-10)
PROC: 10907ZC Drainage of Amniotic Fluid, Therapeutic from Products of Conception, Via Natural or Artificial Opening (ICD-10-PCS; 2016-11-10)
DX: O24.424 Gestational diabetes mellitus in childbirth, insulin controlled (principal); O99.214 Obesity complicating childbirth; O62.0 Primary inadequate contractions; E66.01 Morbid (severe) obesity due to excess calories; Z3A.39 39 weeks gestation of pregnancy; Z37.0 Single live birth
CPT/HCPCS: 36415; 82962; 85025; 86850; 86900; 86901; 88307; A9270-GY; J0690; J1885; J2270; J2300; J2405; J2590; J7050; J7120

== ENCOUNTER 2017-08-17 02:03 | Emergency (ER) | payer MEDICAID ==
[2017-08-17 02:18] VITALS: BP 120/57
[2017-08-17] MEDS ORDERED: Azithromycin 250 MG Tab PO ONE (02:23)
--- NOTE | 2017-08-17 02:29 | EDM.PDOC ---
ED HPI GENERAL MEDICAL PROBLEM - General Chief Complaint: Respiratory Problem Stated Complaint: COUGH Time Seen by Provider: 08/17/17 02:15 Source of Information: Reports: Patient History Limitations: Reports: No Limitations - History of Present Illness INITIAL COMMENTS - FREE TEXT/NARRATIVE: Cheli comes to [facility] ED with a 2 day hx of some cough, noisy respirations without wheezing, and malaise. There is no fever, chills, or sweats. She does not smoke. She needs a note for work this weekend. 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 ED EXAM, GENERAL - Physical Exam Exam: See Below Exam Limited By: No Limitations General Appearance: Alert, WD/WN, No Apparent Distress, Obese Eye Exam: Bilateral Eye: EOMI, Normal Inspection, PERRL Ears: Normal External Exam, Normal TMs Nose: Normal Inspection, Normal Mucosa Throat/Mouth: Normal Inspection, Normal Lips, Normal Gums, Normal Oropharynx, Normal Voice, No Airway Compromise Head: Normocephalic Neck: Normal Inspection, Supple, Full Range of Motion Respiratory/Chest: No Respiratory Distress, No Accessory Muscle Use, Rhonchi Cardiovascular: Normal Peripheral Pulses, Regular Rate, Rhythm, No Murmur Back Exam: Normal Inspection Extremities: Normal Inspection Neurological: Alert, Oriented, CN II-XII Intact, Normal Cognition, Normal Gait, No Motor/Sensory Deficits Psychiatric: Normal Affect, Normal Mood Skin Exam: Warm, Dry, Intact Lymphatic: No Adenopathy Course - Vital Signs Text/Narrative:: Cheli has a bronchitis, and will be managed with OTC cough med and a Z Seven. Last Recorded V/S: Last Vital Signs Temp 36.6 C 08/17/17 02:10 Pulse 80 08/17/17 02:10 Resp 18 08/17/17 02:10 BP 120/57 L 08/17/17 02:10 Pulse Ox 96 08/17/17 02:10 Departure - Departure Time of Disposition: 02:27 Disposition: Home, Self-Care 01 Condition: Fair Clinical Impression: Bronchitis - Discharge Information Referrals: Stewart Marc MD [Primary Care Provider] - - Problem List & Annotations (1) Bronchitis SNOMED Code(s): 19008492 Code(s): J40 - BRONCHITIS, NOT SPECIFIED ACUTE OR CHRONIC Status: Acute Current Visit: Yes Annotation/Comment:: I dispensed a Z Seven and suggested OTC cough med for sxs relief. A note for medical leave this weekend was provided. - Problem List Review Problem List Initiated/Reviewed/Updated: Yes - Assessment/Plan Plan: Follow up with PCP if needed. d
== END 2017-08-17 02:35 | disposition home or self-care (01) ==
LOC: FB.ED 02:03
DX: J40 Bronchitis, not specified as acute or chronic (principal)
CPT/HCPCS: 99282; A9270

== ENCOUNTER 2020-12-02 15:23 | Emergency (ER) | payer MEDICAID ==
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
[2020-12-02] MEDS ORDERED: Ketorolac 30 MG/ML SDV IM ONE (16:18)
[2020-12-02] MEDS ORDERED: Gabapentin 300 MG Cap PO ONE (16:21)
[2020-12-02 16:24] VITALS: BP 148/53; PULSE 82
== END 2020-12-02 18:06 | disposition home or self-care (01) ==
LOC: FB.ED 15:23
DX: M54.16 Radiculopathy, lumbar region (principal); R73.9 Hyperglycemia, unspecified; E66.9 Obesity, unspecified; Z68.33 Body mass index [BMI] 33.0-33.9, adult
CPT/HCPCS: 81001; 81025; 82947; 96372; 99283; A9270; J1885; J3360

== ENCOUNTER 2022-01-12 19:14 | Emergency (ER) | payer SELFPAY ==
[2022-01-12] MEDS ORDERED: Lidocaine 1% 20 ML MDV INFILT ONE (19:15)
[2022-01-12] MEDS ORDERED: Acetaminophen/HYDROcodone 325-5 MG Tab PO ONE ×2 (19:15→20:27)
[2022-01-12] MEDS ORDERED: Ondansetron 4 MG Tab.DIS PO ONE (20:27)
[2022-01-12] MEDS ORDERED: Doxycycline 100 MG Tab PO ONE (20:27)
[2022-01-12 21:15] VITALS: BP 120/48; PULSE 80
== END 2022-01-12 21:45 | disposition home or self-care (01) ==
LOC: FB.ED 19:14
DX: L03.116 Cellulitis of left lower limb (principal); L02.416 Cutaneous abscess of left lower limb; E11.65 Type 2 diabetes mellitus with hyperglycemia; E66.9 Obesity, unspecified; Z68.34 Body mass index [BMI] 34.0-34.9, adult; Z79.899 Other long term (current) drug therapy
CPT/HCPCS: 10060; 82947; 99282; A9270; Q0162